=== PATIENT | female | born 1990 | race Caucasian/White ===

== ENCOUNTER 2018-03-13 17:46 | Emergency (ER) | payer MEDICARE, OTHER ==
[~2018-03-13] VITALS: Ht 165.1 cm; Wt 81.8 kg
[~2018-03-13 17:46] MED LIST: DIVA500T52 PO
[2018-03-13 19:07] LABS: AMPHET/METH SCREEN,URINE POSITIVE (NEGATIVE); BARBITURATE SCREEN, URINE NEGATIVE (NEGATIVE); BENZODIAZEPINES SCREEN,URINE POSITIVE (NEGATIVE); CANNABINOID SCREEN,URINE NEGATIVE (NEGATIVE); COCAINE SCREEN,URINE NEGATIVE (NEGATIVE); METHADONE SCREEN, URINE NEGATIVE (NEGATIVE); OPIATE SCREEN,URINE POSITIVE (NEGATIVE); PHENCYCLIDINE SCREEN,URINE NEGATIVE (NEGATIVE)
[2018-03-13 19:14] LABS: BASOPHILS % (AUTO) 0.5 % (0.0-2.0); EOSINOPHILS % (AUTO) 0.8 % (1.0-6.0); HEMATOCRIT 39.5 % (36-46); HEMOGLOBIN 13.5 g/dL (12.0-16.0); LYMPHOCYTES # (AUTO) 2.5 K/uL (1.0-4.8); LYMPHOCYTES % (AUTO) 29.5 % (22.0-44.0); MEAN CORPUSCULAR HEMOGLOBIN 28.1 pg (26.0-34.0); MEAN CORPUSCULAR HGB CONC 34.1 G/dL (31.0-37.0); MEAN CORPUSCULAR VOLUME 83 fL (80-100); MONOCYTES # (AUTO) 0.5 K/uL (0.1-1.0); MONOCYTES % (AUTO) 6.5 % (2.0-9.0); NEUTROPHILS # (AUTO) 5.2 K/uL (1.8-7.7); NEUTROPHILS % (AUTO) 62.7 % (40.0-70.0); PLATELET COUNT (AUTO) 253 K/uL (150-450); RED BLOOD CELL COUNT(AUTO) 4.79 MIL/uL (4.00-5.20); RED CELL DISTRIBUTION WIDTH 14.6 % (11.5-14.5)
[2018-03-13 19:28] LABS: ANION GAP 10 mmol/L (8-16); CALCIUM, TOTAL 9.1 mg/dL (8.8-10.5); CARBON DIOXIDE 26 mmol/L (22-29); CHLORIDE 103 mmol/L (98-107); CREATININE 0.66 mg/dL (0.60-1.30); GLOMERULAR FILTR. RATE CALC > 60 mL/min (>60); GLUCOSE,RANDOM 136 mg/dL (70-110); SODIUM SERUM 139 mmol/L (136-145); UREA NITROGEN, BLOOD 10 mg/dL (7-18)
[2018-03-13 19:34] LABS: ALANINE AMINOTRANSFERASE 22 U/L (12-78); ALBUMIN 3.7 g/dL (3.4-5.0); ALKALINE PHOSPHATASE 90 U/L (46-116); ASPARTATE AMINOTRANSFERASE 14 U/L (15-37); BILIRUBIN,TOTAL 0.4 mg/dL (0.1-1.0)
[2018-03-13 20:47] VITALS: BP 115/72
== END 2018-03-13 20:50 | disposition home or self-care (01) ==
LOC: EMS 17:48
DX: F41.9 Anxiety disorder, unspecified (principal); F29 Unspecified psychosis not due to a substance or known physiological condition; F31.9 Bipolar disorder, unspecified; F17.210 Nicotine dependence, cigarettes, uncomplicated; Z88.0 Allergy status to penicillin; Z88.2 Allergy status to sulfonamides
CPT/HCPCS: 36415; 80053; 80307; 85025; 99284; G0480

== ENCOUNTER 2019-08-30 08:24 | Inpatient (IN) | payer MEDICARE, OTHER ==
[~2019-08-30] VITALS: Ht 165.1 cm; Wt 68.2 kg
[2019-08-30] MEDS ORDERED: ONDA-104 PO (09:09)
[2019-08-30] MEDS ORDERED: CloNIDine HCL 0.1 MG TABLET PO ONE (09:15)
[2019-08-30] MEDS ORDERED: ONDANSETRON HCL 4 MG/2 ML VIAL IVP ONE (09:15)
[2019-08-30 10:15] LABS: BASOPHILS % (AUTO) 0.6 % (0.0-2.0); EOSINOPHILS % (AUTO) 0.1 % (1.0-6.0); HEMATOCRIT 41.3 % (36-46); HEMOGLOBIN 13.7 g/dL (12.0-16.0); LYMPHOCYTES # (AUTO) 2.1 K/uL (1.0-4.8); LYMPHOCYTES % (AUTO) 19.7 % (22.0-44.0); MEAN CORPUSCULAR HEMOGLOBIN 28.5 pg (26.0-34.0); MEAN CORPUSCULAR HGB CONC 33.2 G/dL (31.0-37.0); MEAN CORPUSCULAR VOLUME 86 fL (80-100); MONOCYTES # (AUTO) 0.5 K/uL (0.1-1.0); MONOCYTES % (AUTO) 4.7 % (2.0-9.0); NEUTROPHILS # (AUTO) 7.9 K/uL (1.8-7.7); NEUTROPHILS % (AUTO) 74.9 % (40.0-70.0); PLATELET COUNT (AUTO) 206 K/uL (150-450); RED CELL DISTRIBUTION WIDTH 14.6 % (11.5-14.5)
[2019-08-30] MEDS ORDERED: ACETAMINOPHEN 325 MG TABLET PO PRN ×3 (10:15→23:00)
[2019-08-30] MEDS ORDERED: ONDANSETRON HCL 4 MG/2 ML VIAL IVP PRN ×2 (10:15→23:00)
[2019-08-30] MEDS ORDERED: 0.9% SODIUM CHLORIDE 10 ML SYRINGE IVP PRN (10:15)
[2019-08-30 10:29] LABS: SALICYLATE 0.2 mg/dL (2.8-20.0)
[2019-08-30 10:34] LABS: ALANINE AMINOTRANSFERASE 161 U/L (12-78); ALKALINE PHOSPHATASE 86 U/L (46-116); ANION GAP 12 mmol/L (8-16); ASPARTATE AMINOTRANSFERASE 47 U/L (15-37); BILIRUBIN,TOTAL 0.7 mg/dL (0.1-1.0); CALCIUM, TOTAL 9.1 mg/dL (8.8-10.5); CARBON DIOXIDE 25 mmol/L (22-29); CHLORIDE 104 mmol/L (98-107); CREATINE KINASE, TOTAL ONLY 47 U/L (26-192); CREATININE 0.64 mg/dL (0.60-1.30); GLOMERULAR FILTR. RATE CALC > 60 mL/min (>60); GLUCOSE,RANDOM 113 mg/dL (70-110); HCG,QUANTITATIVE < 1 mIU/mL (0-6); SODIUM SERUM 141 mmol/L (136-145); TOTAL PROTEIN, SERUM 8.3 g/dL (6.4-8.2); UREA NITROGEN, BLOOD 8 mg/dL (7-18)
[2019-08-30 10:35] LABS: POTASSIUM 2.9 mmol/L (3.5-5.1)
[2019-08-30 10:37] LABS: ACETAMINOPHEN < 2 mcg/mL (10-30); B-TYPE NATRIURETIC PEPTIDE 249 pg/mL (0-100)
[2019-08-30] MEDS ORDERED: POTASSIUM CHLORIDE 20 MEQ ER TABLET PO ONE (10:45)
[2019-08-30 10:48] VITALS: BP 113/67
[2019-08-30] MEDS ORDERED: INFLUENZA VIRUS VACCINE QVS 2019-20 (3YR+)/PF 60 MCG/0.5 ML SYRINGE IM ONE (12:00)
[2019-08-30 12:35] VITALS: BP 127/85
[2019-08-30 15:53] VITALS: BP 128/73
[2019-08-30] MEDS: ALPRAZolam 0.25 MG TABLET PO PRN (18:42)
[2019-08-30 19:56] VITALS: BP 132/78
[2019-08-30] MEDS ORDERED: IBUPROFEN 600 MG TABLET PO PRN ×2 (22:00)
[2019-08-30] MEDS ORDERED: HydrOXYzine PAMOATE 50 MG CAPSULE PO PRN (22:00)
[2019-08-30] MEDS ORDERED: MAG HYDROX/AL HYDROX/SIMETH ES 30 ML SUSPENSION UDCUP PO PRN ×2 (22:00)
[2019-08-30] MEDS ORDERED: BACLOFEN 10 MG TABLET PO PRN (22:00)
[2019-08-30] MEDS ORDERED: DICYCLOMINE HCL 10 MG CAPSULE PO PRN (22:00)
[2019-08-30] MEDS ORDERED: LOPERAMIDE HCL 2 MG/15 ML SUSPENSION UDCUP PO PRN (22:00)
[2019-08-30] MEDS ORDERED: TraZODone HCL 50 MG TABLET PO PRN (22:00)
[2019-08-30] MEDS ORDERED: LORazepam 1 MG TABLET PO PRN (22:00)
[2019-08-30] MEDS ORDERED: PROMETHAZINE HCL 25 MG TABLET PO PRN (22:00)
[2019-08-30] MEDS ORDERED: CloNIDine HCL 0.1 MG TABLET PO PRN ×2 (22:00)
[2019-08-30] MEDS: SODIUM CHLORIDE 0.45% 1,000 ML IV SCH (23:00)
[2019-08-30] MEDS: CloNIDine HCL 0.1 MG TABLET PO SCH (23:00)
[2019-08-30] MEDS ORDERED: BISACODYL 10 MG RECTAL RECTAL SUPPOSITORY PR PRN (23:00)
[2019-08-30] MEDS ORDERED: ZOLPIDEM TARTRATE 5 MG TABLET PO PRN (23:00)
[2019-08-30] MEDS ORDERED: ALBUTEROL SULFATE 2.5 MG/0.5 ML NEB SOLUTION NEB PRN (23:00)
[2019-08-30] MEDS ORDERED: MAGNESIUM HYDROXIDE SUSPENSION 30 ML UDCUP PO PRN (23:00)
[2019-08-30] MEDS ORDERED: IPRATROPIUM BROMIDE 0.5 MG/2.5 ML NEB SOLUTION NEB PRN (23:00)
[2019-08-30 23:01] VITALS: BP 113/80
[2019-08-30] MEDS: HEPARIN SODIUM,PORCINE 5,000 UNITS/ML VIAL SQ SCH (23:05)
[2019-08-31] MEDS: CloNIDine HCL 0.1 MG TABLET PO SCH ×4 (06:02→20:27)
[2019-08-31 06:03] VITALS: BP 130/77
[2019-08-31] MEDS: HEPARIN SODIUM,PORCINE 5,000 UNITS/ML VIAL SQ SCH ×3 (08:52→20:32)
[2019-08-31] MEDS: ALPRAZolam 0.25 MG TABLET PO PRN (08:53)
[2019-08-31 09:20] VITALS: BP 106/63
[2019-08-31] MEDS ORDERED: DICYCLOMINE HCL 10 MG CAPSULE PO PRN (13:15)
[2019-08-31] MEDS: OLANZapine 5 MG TABLET PO SCH ×2 (13:49→20:31)
[2019-08-31 15:32] VITALS: BP 104/58
[2019-08-31] MEDS: SODIUM CHLORIDE 0.45% 1,000 ML IV SCH ×2 (16:30→20:33)
[2019-08-31 20:48] VITALS: BP 137/91
[2019-09-01] MEDS: CloNIDine HCL 0.1 MG TABLET PO SCH ×4 (05:53→21:20)
[2019-09-01 05:55] VITALS: BP 136/79
[2019-09-01 08:15] VITALS: BP 122/76
[2019-09-01] MEDS: HEPARIN SODIUM,PORCINE 5,000 UNITS/ML VIAL SQ SCH ×2 (08:43→16:32)
[2019-09-01] MEDS: OLANZapine 5 MG TABLET PO SCH ×2 (08:43→20:04)
[2019-09-01] MEDS: SODIUM CHLORIDE 0.45% 1,000 ML IV SCH (16:33)
[2019-09-01 20:01] VITALS: BP 98/58
[2019-09-02] MEDS: HEPARIN SODIUM,PORCINE 5,000 UNITS/ML VIAL SQ SCH ×4 (00:21→23:50)
[2019-09-02 04:26] VITALS: BP 129/86
[2019-09-02] MEDS: CloNIDine HCL 0.1 MG TABLET PO SCH ×4 (05:26→21:16)
[2019-09-02 07:41] VITALS: BP 127/75
[2019-09-02] MEDS: OLANZapine 5 MG TABLET PO SCH ×2 (08:17→21:15)
[2019-09-02] MEDS: SODIUM CHLORIDE 0.45% 1,000 ML IV SCH ×2 (08:17→16:50)
[2019-09-02] MEDS: HydrOXYzine PAMOATE 25 MG CAPSULE PO SCH ×3 (12:16→21:15)
[2019-09-02 15:22] VITALS: BP 110/69
[2019-09-02 19:00] VITALS: BP 106/54
[2019-09-03 00:12] VITALS: BP 117/75
[2019-09-03] MEDS: CloNIDine HCL 0.1 MG TABLET PO SCH ×4 (05:43→21:42)
[2019-09-03] MEDS: SODIUM CHLORIDE 0.45% 1,000 ML IV SCH (05:47)
[2019-09-03 07:33] LABS: ANION GAP 9 mmol/L (8-16); CALCIUM, TOTAL 9.2 mg/dL (8.8-10.5); CARBON DIOXIDE 25 mmol/L (22-29); CHLORIDE 104 mmol/L (98-107); CREATININE 0.64 mg/dL (0.60-1.30); GLOMERULAR FILTR. RATE CALC > 60 mL/min (>60); GLUCOSE,RANDOM 99 mg/dL (70-110); POTASSIUM 3.8 mmol/L (3.5-5.1); SODIUM SERUM 138 mmol/L (136-145); UREA NITROGEN, BLOOD 7 mg/dL (7-18)
[2019-09-03 07:48] LABS: BASOPHILS % (AUTO) 0.4 % (0.0-2.0); EOSINOPHILS % (AUTO) 0.7 % (1.0-6.0); HEMATOCRIT 40.8 % (36-46); HEMOGLOBIN 13.7 g/dL (12.0-16.0); LYMPHOCYTES # (AUTO) 2.4 K/uL (1.0-4.8); MEAN CORPUSCULAR HEMOGLOBIN 28.8 pg (26.0-34.0); MEAN CORPUSCULAR HGB CONC 33.6 G/dL (31.0-37.0); MEAN CORPUSCULAR VOLUME 86 fL (80-100); MONOCYTES # (AUTO) 0.4 K/uL (0.1-1.0); MONOCYTES % (AUTO) 5.4 % (2.0-9.0); NEUTROPHILS # (AUTO) 5.2 K/uL (1.8-7.7); NEUTROPHILS % (AUTO) 63.5 % (40.0-70.0); RED BLOOD CELL COUNT(AUTO) 4.76 MIL/uL (4.00-5.20); RED CELL DISTRIBUTION WIDTH 14.9 % (11.5-14.5)
[2019-09-03] MEDS: OLANZapine 5 MG TABLET PO SCH ×2 (07:54→20:06)
[2019-09-03] MEDS: HydrOXYzine PAMOATE 25 MG CAPSULE PO SCH ×3 (07:55→20:06)
[2019-09-03] MEDS: HEPARIN SODIUM,PORCINE 5,000 UNITS/ML VIAL SQ SCH ×3 (07:56→23:50)
[2019-09-03 08:06] VITALS: BP 107/65
[2019-09-03 08:41] LABS: PLATELET COUNT (AUTO) 146 K/uL (150-450)
[2019-09-03] MEDS: HydrOXYzine PAMOATE 50 MG CAPSULE PO PRN (10:09)
[2019-09-03] MEDS: HALOPERIDOL 5 MG TABLET PO PRN (12:56)
[2019-09-03 16:10] VITALS: BP 107/68
[2019-09-03 20:07] VITALS: BP 93/48
[2019-09-04] MEDS: HALOPERIDOL 5 MG TABLET PO PRN ×2 (03:54→10:31)
[2019-09-04 04:33] VITALS: BP 111/69
[2019-09-04] MEDS: CloNIDine HCL 0.1 MG TABLET PO SCH ×4 (06:12→21:36)
[2019-09-04] MEDS: HEPARIN SODIUM,PORCINE 5,000 UNITS/ML VIAL SQ SCH ×2 (08:00→16:00)
[2019-09-04 08:26] VITALS: BP 100/61
[2019-09-04] MEDS: HydrOXYzine PAMOATE 50 MG CAPSULE PO PRN ×2 (08:52→13:07)
[2019-09-04] MEDS: OLANZapine 5 MG TABLET PO SCH (08:52)
[2019-09-04] MEDS: HydrOXYzine PAMOATE 25 MG CAPSULE PO SCH (10:27)
[2019-09-04] MEDS: HydrOXYzine PAMOATE 50 MG CAPSULE PO SCH ×2 (16:16→21:33)
[2019-09-04 16:27] VITALS: BP 114/71
[2019-09-04 20:05] VITALS: BP 110/65
[2019-09-04] MEDS: OLANZapine 7.5 MG TABLET PO SCH (21:33)
[2019-09-05 04:55] VITALS: BP 120/78
[2019-09-05] MEDS: CloNIDine HCL 0.1 MG TABLET PO SCH ×4 (05:50→22:00)
[2019-09-05 07:44] VITALS: BP 107/69
[2019-09-05] MEDS: HEPARIN SODIUM,PORCINE 5,000 UNITS/ML VIAL SQ SCH ×3 (08:00→15:17)
[2019-09-05] MEDS: OLANZapine 7.5 MG TABLET PO SCH ×2 (08:10→20:53)
[2019-09-05] MEDS: HydrOXYzine PAMOATE 50 MG CAPSULE PO SCH ×3 (08:11→20:52)
[2019-09-05 15:59] VITALS: BP 110/57
[2019-09-05 20:00] VITALS: BP 98/57
[2019-09-05 22:30] VITALS: BP 92/56
[2019-09-06 04:30] VITALS: BP 115/69
[2019-09-06] MEDS: HydrOXYzine PAMOATE 50 MG CAPSULE PO PRN (05:17)
[2019-09-06] MEDS: CloNIDine HCL 0.1 MG TABLET PO SCH ×4 (05:17→22:32)
[2019-09-06] MEDS: HEPARIN SODIUM,PORCINE 5,000 UNITS/ML VIAL SQ SCH ×3 (08:00→16:00)
[2019-09-06] MEDS: OLANZapine 7.5 MG TABLET PO SCH ×2 (08:10→20:38)
[2019-09-06] MEDS: HydrOXYzine PAMOATE 50 MG CAPSULE PO SCH ×3 (08:10→20:38)
[2019-09-06 08:21] VITALS: BP 99/62
[2019-09-06 16:58] VITALS: BP 92/51
[2019-09-06 19:40] VITALS: BP 99/60
[2019-09-06 22:30] VITALS: BP 106/73
[2019-09-07 03:55] VITALS: BP 99/52
[2019-09-07 06:00] VITALS: BP 113/68
[2019-09-07] MEDS: CloNIDine HCL 0.1 MG TABLET PO SCH ×4 (06:07→22:00)
[2019-09-07 07:51] VITALS: BP 109/57
[2019-09-07] MEDS: OLANZapine 7.5 MG TABLET PO SCH ×2 (07:57→20:28)
[2019-09-07] MEDS: HydrOXYzine PAMOATE 50 MG CAPSULE PO SCH ×3 (07:57→20:28)
[2019-09-07] MEDS: HEPARIN SODIUM,PORCINE 5,000 UNITS/ML VIAL SQ SCH ×4 (07:57→23:30)
[2019-09-07 15:54] VITALS: BP 108/63
[2019-09-07 20:15] VITALS: BP 92/50
[2019-09-08 00:05] VITALS: BP 94/56
[2019-09-08 04:38] VITALS: BP 112/71
[2019-09-08] MEDS: CloNIDine HCL 0.1 MG TABLET PO SCH ×2 (05:19→11:52)
[2019-09-08 07:38] VITALS: BP 93/45
[2019-09-08] MEDS: HEPARIN SODIUM,PORCINE 5,000 UNITS/ML VIAL SQ SCH (08:00)
[2019-09-08] MEDS: OLANZapine 7.5 MG TABLET PO SCH (08:56)
[2019-09-08] MEDS: HydrOXYzine PAMOATE 50 MG CAPSULE PO SCH (08:56)
[2019-09-08 11:52] VITALS: BP 98/58
[2019-09-08] MEDS ORDERED: HYDR50CA9 PO (14:04)
[2019-09-08] MEDS ORDERED: OLAN7.5T2 PO (14:07)
[2019-09-08] MEDS ORDERED: ACET-3207 PO (14:08)
== END 2019-09-08 14:53 | DRG 897 ==
LOC: EMS 08:25 → 6S 10:07
PROVIDERS: ADMIT Hospitalist; ATTEND Hospitalist
DX: F11.23 Opioid dependence with withdrawal (principal); R45.851 Suicidal ideations; F31.5 Bipolar disorder, current episode depressed, severe, with psychotic features; F31.9 Bipolar disorder, unspecified; F17.210 Nicotine dependence, cigarettes, uncomplicated; F41.9 Anxiety disorder, unspecified; Z59.0 Homelessness; Z79.899 Other long term (current) drug therapy; Z88.0 Allergy status to penicillin; Z88.2 Allergy status to sulfonamides
CPT/HCPCS: 83735; 84132; 93005; G0480; G0481; J1644; J2405

== ENCOUNTER 2019-09-15 12:50 | Inpatient (IN) | payer OTHER ==
[~2019-09-15] VITALS: Ht 160 cm; Wt 61.4 kg
[~2019-09-15 12:50] MED LIST changes: +ACET-3207 PO; -DIVA500T52 PO; +HYDR50CA9 PO; +OLAN7.5T2 PO
[2019-09-15] MEDS ORDERED: ACETAMINOPHEN 325 MG TABLET PO PRN ×2 (13:45→16:30)
[2019-09-15 14:03] LABS: BASOPHILS % (AUTO) 0.6 % (0.0-2.0); EOSINOPHILS % (AUTO) 1.5 % (1.0-6.0); HEMATOCRIT 40.1 % (36-46); HEMOGLOBIN 13.4 g/dL (12.0-16.0); LYMPHOCYTES # (AUTO) 2.3 K/uL (1.0-4.8); LYMPHOCYTES % (AUTO) 28.1 % (22.0-44.0); MEAN CORPUSCULAR HEMOGLOBIN 29.1 pg (26.0-34.0); MEAN CORPUSCULAR HGB CONC 33.4 G/dL (31.0-37.0); MEAN CORPUSCULAR VOLUME 87 fL (80-100); MONOCYTES # (AUTO) 0.5 K/uL (0.1-1.0); MONOCYTES % (AUTO) 6.4 % (2.0-9.0); NEUTROPHILS # (AUTO) 5.3 K/uL (1.8-7.7); NEUTROPHILS % (AUTO) 63.4 % (40.0-70.0); PLATELET COUNT (AUTO) 236 K/uL (150-450); RED BLOOD CELL COUNT(AUTO) 4.59 MIL/uL (4.00-5.20); RED CELL DISTRIBUTION WIDTH 15.6 % (11.5-14.5)
[2019-09-15 14:14] LABS: ANION GAP 8 mmol/L (8-16); CALCIUM, TOTAL 9.4 mg/dL (8.8-10.5); CARBON DIOXIDE 28 mmol/L (22-29); CHLORIDE 104 mmol/L (98-107); CREATININE 0.54 mg/dL (0.60-1.30); GLOMERULAR FILTR. RATE CALC > 60 mL/min (>60); GLUCOSE,RANDOM 94 mg/dL (70-110); POTASSIUM 3.9 mmol/L (3.5-5.1); SODIUM SERUM 140 mmol/L (136-145); UREA NITROGEN, BLOOD 12 mg/dL (7-18)
[2019-09-15 14:32] LABS: ALANINE AMINOTRANSFERASE 83 U/L (12-78); ALBUMIN 3.4 g/dL (3.4-5.0); ALKALINE PHOSPHATASE 74 U/L (46-116); ASPARTATE AMINOTRANSFERASE 30 U/L (15-37); BILIRUBIN,TOTAL 0.2 mg/dL (0.1-1.0); HCG,QUANTITATIVE < 1 mIU/mL (0-6); TOTAL PROTEIN, SERUM 7.7 g/dL (6.4-8.2)
[2019-09-15] MEDS ORDERED: INFLUENZA VIRUS VACCINE QVS 2019-20 (3YR+)/PF 60 MCG/0.5 ML SYRINGE IM ONE (14:45)
[2019-09-15] MEDS ORDERED: PETROLATUM,WHITE 28 GM JELLY TP PRN (16:30)
[2019-09-15] MEDS ORDERED: GuaiFENesin/D-METHORPHAN [SUGAR-FREE] 200-20MG/10 ML SYRUP UDCUP PO PRN (16:30)
[2019-09-15] MEDS ORDERED: DOCUSATE SODIUM 100 MG CAPSULE PO PRN (16:30)
[2019-09-15] MEDS ORDERED: LOPERAMIDE HCL 2 MG CAPSULE PO PRN (16:30)
[2019-09-15] MEDS ORDERED: ALBUTEROL SULFATE HFA 90 MCG/PUFF 8 GM INHALER IH PRN (16:30)
[2019-09-15] MEDS ORDERED: IBUPROFEN 400 MG TABLET PO PRN (16:30)
[2019-09-15] MEDS ORDERED: MAGNESIUM HYDROXIDE SUSPENSION 30 ML UDCUP PO PRN (16:30)
[2019-09-15] MEDS ORDERED: CloNIDine HCL 0.1 MG TABLET PO PRN (16:30)
[2019-09-15] MEDS ORDERED: NICOTINE 14 MG/24 HOUR PATCH TD PRN (16:30)
[2019-09-15] MEDS ORDERED: MAG HYDROX/AL HYDROX/SIMETH ES 30 ML SUSPENSION UDCUP PO PRN (16:30)
[2019-09-15] MEDS ORDERED: ONDANSETRON HCL 4 MG TABLET PO PRN (16:30)
[2019-09-15 17:41] VITALS: BP 104/67
[2019-09-15 19:41] VITALS: BP 105/67
[2019-09-16 04:03] VITALS: BP 108/68
[2019-09-16 08:07] VITALS: BP 107/68
[2019-09-16] MEDS: LORazepam 1 MG TABLET PO PRN ×2 (12:51→19:47)
[2019-09-16 15:38] VITALS: BP 109/69
[2019-09-16 19:51] VITALS: BP 108/62
[2019-09-17 04:43] VITALS: BP 107/71
[2019-09-17] MEDS: LORazepam 1 MG TABLET PO PRN ×2 (07:44→12:33)
== END 2019-09-17 18:20 | DRG 885 ==
LOC: EMS 12:52 → 6S 13:39
PROVIDERS: ADMIT Internal Medicine; ATTEND Internal Medicine
DX: F31.5 Bipolar disorder, current episode depressed, severe, with psychotic features (principal); R45.851 Suicidal ideations; F19.10 Other psychoactive substance abuse, uncomplicated; F41.1 Generalized anxiety disorder; B19.20 Unspecified viral hepatitis C without hepatic coma; F11.10 Opioid abuse, uncomplicated; F60.3 Borderline personality disorder; F43.10 Post-traumatic stress disorder, unspecified; F17.210 Nicotine dependence, cigarettes, uncomplicated; Z59.0 Homelessness; Z88.0 Allergy status to penicillin; Z88.2 Allergy status to sulfonamides; Z28.21 Immunization not carried out because of patient refusal
CPT/HCPCS: 87081; G0480

== ENCOUNTER 2021-09-10 21:26 | Emergency (ER) | payer OTHER ==
[~2021-09-10] VITALS: Ht 167.6 cm; Wt 86.4 kg
[2021-09-10] MEDS ORDERED: ACETAMINOPHEN 500 MG TABLET PO ONE (22:30)
[2021-09-10] MEDS ORDERED: KETOROLAC TROMETHAMINE 30 MG/ML VIAL IM ONE (22:30)
[2021-09-11 01:08] VITALS: BP 118/65
== END 2021-09-11 01:09 | disposition home or self-care (01) ==
LOC: EMS 21:28
DX: S20.212A Contusion of left front wall of thorax, initial encounter (principal); F41.9 Anxiety disorder, unspecified; F31.9 Bipolar disorder, unspecified; F11.90 Opioid use, unspecified, uncomplicated; F19.90 Other psychoactive substance use, unspecified, uncomplicated; F17.210 Nicotine dependence, cigarettes, uncomplicated; Z88.0 Allergy status to penicillin; Z88.1 Allergy status to other antibiotic agents; W05.1XXA Fall from non-moving nonmotorized scooter, initial encounter; Y93.55 Activity, bike riding; Y92.89 Other specified places as the place of occurrence of the external cause; Y99.8 Other external cause status
CPT/HCPCS: 71250; 96372; 99284; J1885

== ENCOUNTER 2021-12-07 20:03 | Inpatient (IN) | payer MEDICARE, MEDICAID ==
[~2021-12-07] VITALS: Ht 165.1 cm; Wt 83.9 kg
[2021-12-07] MEDS ORDERED: OXCA600T3 PO (20:39)
[2021-12-07] MEDS ORDERED: BUPR1FIL3 SL (20:39)
[2021-12-07] MEDS ORDERED: GABA-1201 PO (20:39)
[2021-12-07] MEDS ORDERED: TRAZ150T79 PO (20:39)
[2021-12-07] MEDS ORDERED: FLUO20CA36 PO (20:39)
[2021-12-07 21:18] LABS: COVID AG,FIA SOURCE NASOPHARYNGEAL
[2021-12-07 21:19] LABS: BASOPHILS % (AUTO) 0.3 % (0.0-2.0); EOSINOPHILS % (AUTO) 0.9 % (1.0-6.0); HEMATOCRIT 38.5 % (36-46); HEMOGLOBIN 12.9 g/dL (12.0-16.0); LYMPHOCYTES % (AUTO) 34.2 % (22.0-44.0); MEAN CORPUSCULAR HEMOGLOBIN 27.3 pg (26.0-34.0); MEAN CORPUSCULAR HGB CONC 33.5 G/dL (31.0-37.0); MEAN CORPUSCULAR VOLUME 82 fL (80-100); MONOCYTES # (AUTO) 0.5 K/uL (0.1-1.0); MONOCYTES % (AUTO) 5.9 % (2.0-9.0); NEUTROPHILS # (AUTO) 5.2 K/uL (1.8-7.7); NEUTROPHILS % (AUTO) 58.7 % (40.0-70.0); PLATELET COUNT (AUTO) 230 K/uL (150-450); RED BLOOD CELL COUNT(AUTO) 4.72 MIL/uL (4.00-5.20)
[2021-12-07 21:30] LABS: ANION GAP 12 mmol/L (8-16); CALCIUM, TOTAL 8.9 mg/dL (8.8-10.5); CARBON DIOXIDE 26 mmol/L (22-29); CHLORIDE 102 mmol/L (98-107); CREATININE 0.53 mg/dL (0.60-1.30); GLUCOSE,RANDOM 112 mg/dL (70-110); POTASSIUM 3.5 mmol/L (3.5-5.1); SODIUM SERUM 140 mmol/L (136-145); UREA NITROGEN, BLOOD 9 mg/dL (7-18)
[2021-12-07 21:37] LABS: AMPHET/METH SCREEN,URINE NEGATIVE (NEGATIVE); BARBITURATE SCREEN, URINE NEGATIVE (NEGATIVE); BENZODIAZEPINES SCREEN,URINE NEGATIVE (NEGATIVE); CANNABINOID SCREEN,URINE NEGATIVE (NEGATIVE); COCAINE SCREEN,URINE NEGATIVE (NEGATIVE); METHADONE SCREEN, URINE NEGATIVE (NEGATIVE); OPIATE SCREEN,URINE NEGATIVE (NEGATIVE)
[2021-12-07 21:42] LABS: ALANINE AMINOTRANSFERASE 13 U/L (12-78); ALKALINE PHOSPHATASE 96 U/L (46-116); ASPARTATE AMINOTRANSFERASE 8 U/L (15-37); BILIRUBIN,TOTAL 0.2 mg/dL (0.1-1.0); TOTAL PROTEIN, SERUM 8.4 g/dL (6.4-8.2)
[2021-12-07 21:53] LABS: GLOMERULAR FILTR. RATE CALC > 60 mL/min (>60)
[2021-12-07 21:53] LABS: PHENCYCLIDINE SCREEN,URINE NEGATIVE (NEGATIVE)
[2021-12-08] MEDS: ZOLPIDEM TARTRATE 10 MG TABLET PO PRN ×2 (03:21→21:48)
[2021-12-08] MEDS: LORazepam 2 MG TABLET PO PRN ×3 (03:30→17:26)
[2021-12-08 04:53] VITALS: BP 112/71
[2021-12-08] MEDS ORDERED: MAG HYDROX/AL HYDROX/SIMETH ES 30 ML SUSPENSION UDCUP PO PRN (09:45)
[2021-12-08] MEDS ORDERED: LOPERAMIDE HCL 2 MG CAPSULE PO PRN (09:45)
[2021-12-08] MEDS ORDERED: MAGNESIUM HYDROXIDE SUSPENSION 30 ML UDCUP PO PRN (09:45)
[2021-12-08] MEDS ORDERED: ALBUTEROL SULFATE HFA 90 MCG/PUFF 8 GM INHALER IH PRN (09:45)
[2021-12-08] MEDS ORDERED: CloNIDine HCL 0.1 MG TABLET PO PRN (09:45)
[2021-12-08] MEDS ORDERED: DOCUSATE SODIUM 100 MG CAPSULE PO PRN (09:45)
[2021-12-08] MEDS ORDERED: PETROLATUM,WHITE 28 GM JELLY TP PRN (09:45)
[2021-12-08] MEDS ORDERED: GuaiFENesin/D-METHORPHAN [SUGAR-FREE] 200-20MG/10 ML SYRUP UDCUP PO PRN (09:45)
[2021-12-08] MEDS ORDERED: ONDANSETRON HCL 4 MG TABLET PO PRN (09:45)
[2021-12-08] MEDS: HALOPERIDOL 5 MG TABLET PO PRN ×2 (13:03→17:26)
[2021-12-08 16:04] VITALS: BP 103/65
[2021-12-08] MEDS: OXcarbazepine 300 MG TABLET PO SCH (16:06)
[2021-12-08] MEDS: GABAPENTIN 400 MG CAPSULE PO SCH (16:06)
[2021-12-08 23:04] LABS: CHOL/HDL RATIO 4.2 (3.9-5.7); CHOLESTEROL 167 mg/dL (131-200); HDL CHOLESTEROL 40 mg/dL (40-60); LDL CHOL (CALC.) 90 mg/dL (0-130); THYROID STIMULATING HORMONE 1.39 uIU/mL (0.36-3.74); TRIGLYCERIDES 186 mg/dL (15-150)
[2021-12-09 00:07] VITALS: BP 100/62
[2021-12-09] MEDS: GABAPENTIN 400 MG CAPSULE PO SCH ×2 (08:12→16:05)
[2021-12-09] MEDS: LORazepam 2 MG TABLET PO PRN ×2 (08:13→16:32)
[2021-12-09] MEDS: FLUoxetine HCL 20 MG CAPSULE PO SCH (08:13)
[2021-12-09] MEDS: OXcarbazepine 300 MG TABLET PO SCH ×2 (08:13→16:05)
[2021-12-09] MEDS: HALOPERIDOL 5 MG TABLET PO PRN (08:18)
[2021-12-09] MEDS: TraZODone HCL 150 MG TABLET PO SCH (08:25)
[2021-12-09 08:33] VITALS: BP 123/74
[2021-12-09 16:00] VITALS: BP 112/74
[2021-12-09] MEDS: QUEtiapine FUMARATE 200 MG TABLET PO SCH (21:11)
[2021-12-09] MEDS: ZOLPIDEM TARTRATE 10 MG TABLET PO PRN (21:46)
[2021-12-10 06:34] VITALS: BP 118/73
[2021-12-10] MEDS: LORazepam 2 MG TABLET PO PRN ×2 (08:06→16:50)
[2021-12-10] MEDS: FLUoxetine HCL 20 MG CAPSULE PO SCH (08:06)
[2021-12-10] MEDS: TraZODone HCL 150 MG TABLET PO SCH (08:06)
[2021-12-10] MEDS: GABAPENTIN 400 MG CAPSULE PO SCH ×2 (08:06→16:04)
[2021-12-10] MEDS: OXcarbazepine 300 MG TABLET PO SCH ×2 (08:06→16:04)
[2021-12-10 08:16] VITALS: BP 118/84
[2021-12-10] MEDS: HALOPERIDOL 5 MG TABLET PO PRN ×2 (13:38→19:03)
[2021-12-10 16:04] VITALS: BP 121/73
[2021-12-10] MEDS: QUEtiapine FUMARATE 200 MG TABLET PO SCH (20:11)
[2021-12-10] MEDS: ZOLPIDEM TARTRATE 10 MG TABLET PO PRN (20:11)
[2021-12-11 02:58] VITALS: BP 112/76
[2021-12-11] MEDS: LORazepam 2 MG TABLET PO PRN ×3 (03:03→18:53)
[2021-12-11] MEDS: HALOPERIDOL 5 MG TABLET PO PRN ×2 (06:02→12:41)
[2021-12-11] MEDS: FLUoxetine HCL 20 MG CAPSULE PO SCH (08:02)
[2021-12-11] MEDS: GABAPENTIN 400 MG CAPSULE PO SCH ×2 (08:02→16:22)
[2021-12-11 08:03] VITALS: BP 122/74
[2021-12-11] MEDS: TraZODone HCL 150 MG TABLET PO SCH ×2 (08:03→20:24)
[2021-12-11] MEDS: OXcarbazepine 300 MG TABLET PO SCH ×2 (08:03→16:22)
[2021-12-11 16:12] VITALS: BP 103/69
[2021-12-11] MEDS: ACETAMINOPHEN 325 MG TABLET PO PRN (18:08)
[2021-12-11] MEDS: QUEtiapine FUMARATE 200 MG TABLET PO SCH (20:24)
[2021-12-12 00:33] VITALS: BP 112/62
[2021-12-12] MEDS: ZOLPIDEM TARTRATE 10 MG TABLET PO PRN ×2 (02:07→20:39)
[2021-12-12 03:10] VITALS: BP 116/66
[2021-12-12] MEDS: ACETAMINOPHEN 325 MG TABLET PO PRN (03:16)
[2021-12-12] MEDS: GABAPENTIN 400 MG CAPSULE PO SCH ×2 (08:06→16:03)
[2021-12-12] MEDS: OXcarbazepine 300 MG TABLET PO SCH ×2 (08:06→16:03)
[2021-12-12] MEDS: FLUoxetine HCL 20 MG CAPSULE PO SCH (08:06)
[2021-12-12] MEDS: LORazepam 2 MG TABLET PO PRN ×3 (08:06→18:30)
[2021-12-12] MEDS: HALOPERIDOL 5 MG TABLET PO PRN ×2 (08:07→17:11)
[2021-12-12] MEDS: IBUPROFEN 400 MG TABLET PO PRN ×2 (08:07→17:11)
[2021-12-12 08:08] VITALS: BP 110/66
[2021-12-12] MEDS ORDERED: BENZOCAINE/MENTHOL/ZINC CL 20% 11.9 GM GEL TP PRN (15:15)
[2021-12-12 16:23] VITALS: BP 128/82
[2021-12-12 17:10] VITALS: BP 124/79
[2021-12-12] MEDS: QUEtiapine FUMARATE 200 MG TABLET PO SCH (20:39)
[2021-12-12] MEDS: NICOTINE 14 MG/24 HOUR PATCH TD PRN (20:39)
[2021-12-12] MEDS: TraZODone HCL 150 MG TABLET PO SCH (20:39)
[2021-12-13 00:10] VITALS: BP 118/72
[2021-12-13] MEDS: ACETAMINOPHEN 325 MG TABLET PO PRN (03:05)
[2021-12-13] MEDS: LORazepam 2 MG TABLET PO PRN ×2 (05:43→12:20)
[2021-12-13] MEDS: FLUoxetine HCL 20 MG CAPSULE PO SCH (08:30)
[2021-12-13] MEDS: GABAPENTIN 400 MG CAPSULE PO SCH ×2 (08:30→16:01)
[2021-12-13] MEDS: OXcarbazepine 300 MG TABLET PO SCH ×2 (08:30→16:00)
[2021-12-13] MEDS: HALOPERIDOL 5 MG TABLET PO PRN (08:36)
[2021-12-13 08:56] VITALS: BP 114/74
[2021-12-13] MEDS: OxyCODONE HCL/ACETAMINOPHEN 5-325 MG TABLET PO PRN ×2 (08:56→16:01)
[2021-12-13 16:00] VITALS: BP 112/75
[2021-12-13 17:15] VITALS: BP 111/71
[2021-12-13] MEDS: QUEtiapine FUMARATE 200 MG TABLET PO SCH (20:03)
[2021-12-13] MEDS: ZOLPIDEM TARTRATE 10 MG TABLET PO PRN (20:03)
[2021-12-13] MEDS: TraZODone HCL 150 MG TABLET PO SCH (20:03)
[2021-12-14 02:11] VITALS: BP 112/72
[2021-12-14] MEDS: LORazepam 2 MG TABLET PO PRN (03:09)
[2021-12-14] MEDS: ACETAMINOPHEN 325 MG TABLET PO PRN (05:46)
[2021-12-14] MEDS: FLUoxetine HCL 20 MG CAPSULE PO SCH (08:06)
[2021-12-14] MEDS: GABAPENTIN 400 MG CAPSULE PO SCH (08:06)
[2021-12-14] MEDS: OXcarbazepine 300 MG TABLET PO SCH (08:06)
[2021-12-14 08:16] VITALS: BP 118/71
[2021-12-14] MEDS: OxyCODONE HCL/ACETAMINOPHEN 5-325 MG TABLET PO PRN (08:21)
[2021-12-14] MEDS: NICOTINE 14 MG/24 HOUR PATCH TD PRN (09:01)
[2021-12-14] MEDS ORDERED: TRAZ150T79 PO (09:25)
[2021-12-14] MEDS ORDERED: GABA-1201 PO (09:26)
[2021-12-14] MEDS ORDERED: OXCA600T3 PO (09:26)
[2021-12-14] MEDS ORDERED: FLUO20CA36 PO (09:26)
== END 2021-12-14 13:09 | disposition home or self-care (01) | DRG 885 ==
LOC: EMS 20:17 → B3A 12-08 02:12
PROVIDERS: ADMIT Psychiatry & Neurology Psychiatry; ATTEND Psychiatry & Neurology Psychiatry
DX: F25.1 Schizoaffective disorder, depressive type (principal); R45.851 Suicidal ideations; R73.9 Hyperglycemia, unspecified; F17.200 Nicotine dependence, unspecified, uncomplicated; F31.9 Bipolar disorder, unspecified; F43.12 Post-traumatic stress disorder, chronic; F60.3 Borderline personality disorder; G47.00 Insomnia, unspecified; Z20.822 Contact with and (suspected) exposure to COVID-19; F11.10 Opioid abuse, uncomplicated; Z79.899 Other long term (current) drug therapy; Z88.0 Allergy status to penicillin; Z88.2 Allergy status to sulfonamides; Z71.51 Drug abuse counseling and surveillance of drug abuser; Z71.6 Tobacco abuse counseling
CPT/HCPCS: 80053; 80061; 84439; 84443; 84703; 85025; 99285; G0480

== ENCOUNTER 2021-12-18 20:37 | Emergency (ER) | payer OTHER ==
[~2021-12-18] VITALS: Ht 165.1 cm; Wt 59.1 kg
[~2021-12-18 20:37] MED LIST changes: -ACET-3207 PO; +FLUO20CA36 PO; +GABA-1201 PO; -HYDR50CA9 PO; -OLAN7.5T2 PO; +OXCA600T3 PO; +TRAZ150T79 PO
[2021-12-18 21:40] LABS: BASOPHILS % (AUTO) 0.4 % (0.0-2.0); HEMATOCRIT 38.3 % (36-46); HEMOGLOBIN 12.8 g/dL (12.0-16.0); LYMPHOCYTES % (AUTO) 38.2 % (22.0-44.0); MEAN CORPUSCULAR HEMOGLOBIN 27.2 pg (26.0-34.0); MEAN CORPUSCULAR HGB CONC 33.5 G/dL (31.0-37.0); MEAN CORPUSCULAR VOLUME 81 fL (80-100); MONOCYTES # (AUTO) 0.4 K/uL (0.1-1.0); MONOCYTES % (AUTO) 5.7 % (2.0-9.0); NEUTROPHILS # (AUTO) 4.2 K/uL (1.8-7.7); NEUTROPHILS % (AUTO) 54.7 % (40.0-70.0); PLATELET COUNT (AUTO) 245 K/uL (150-450); RED BLOOD CELL COUNT(AUTO) 4.71 MIL/uL (4.00-5.20); RED CELL DISTRIBUTION WIDTH 14.4 % (11.5-14.5)
[2021-12-18 21:48] LABS: ANION GAP 8 mmol/L (8-16); CARBON DIOXIDE 28 mmol/L (22-29); CHLORIDE 103 mmol/L (98-107); CREATININE 0.59 mg/dL (0.60-1.30); GLOMERULAR FILTR. RATE CALC > 60 mL/min (>60); GLUCOSE,RANDOM 114 mg/dL (70-110); POTASSIUM 3.5 mmol/L (3.5-5.1); SODIUM SERUM 139 mmol/L (136-145); UREA NITROGEN, BLOOD 11 mg/dL (7-18)
[2021-12-18 21:54] LABS: ALANINE AMINOTRANSFERASE 17 U/L (12-78); ALBUMIN 3.8 g/dL (3.4-5.0); ALKALINE PHOSPHATASE 108 U/L (46-116); ASPARTATE AMINOTRANSFERASE 12 U/L (15-37); BILIRUBIN,TOTAL 0.2 mg/dL (0.1-1.0); TOTAL PROTEIN, SERUM 7.9 g/dL (6.4-8.2)
[2021-12-18 21:59] LABS: AMPHET/METH SCREEN,URINE NEGATIVE (NEGATIVE); BARBITURATE SCREEN, URINE NEGATIVE (NEGATIVE); BENZODIAZEPINES SCREEN,URINE NEGATIVE (NEGATIVE); CANNABINOID SCREEN,URINE NEGATIVE (NEGATIVE); COCAINE SCREEN,URINE NEGATIVE (NEGATIVE); METHADONE SCREEN, URINE NEGATIVE (NEGATIVE); OPIATE SCREEN,URINE NEGATIVE (NEGATIVE); PHENCYCLIDINE SCREEN,URINE NEGATIVE (NEGATIVE)
[2021-12-18] MEDS ORDERED: LORazepam 1 MG TABLET PO ONE (22:00)
[2021-12-18 22:13] VITALS: BP 142/72
[2021-12-18 22:23] LABS: COVID AG,FIA SOURCE NASAL SWAB
== END 2021-12-18 22:20 | disposition home or self-care (01) ==
LOC: EMS 21:03
DX: F41.9 Anxiety disorder, unspecified (principal); F31.9 Bipolar disorder, unspecified; F25.9 Schizoaffective disorder, unspecified; F60.3 Borderline personality disorder; F17.210 Nicotine dependence, cigarettes, uncomplicated; Z86.59 Personal history of other mental and behavioral disorders; Z98.890 Other specified postprocedural states; Z88.0 Allergy status to penicillin; Z88.2 Allergy status to sulfonamides; Z20.822 Contact with and (suspected) exposure to COVID-19
CPT/HCPCS: 36415; 80053; 80307; 85025; 87426; 99283; C9803; G0480

== ENCOUNTER 2022-09-01 05:56 | Emergency (ER) | payer OTHER ==
[~2022-09-01] VITALS: Ht 167.6 cm; Wt 90.2 kg
[2022-09-01 06:09] VITALS: BP 112/68
[2022-09-01] MEDS ORDERED: SODIUM CHLORIDE 0.9% 1,000 ML IV ONE (06:15)
== END 2022-09-01 06:30 | disposition left against medical advice (07) ==
LOC: EMS 05:57
DX: T42.4X1A Poisoning by benzodiazepines, accidental (unintentional), initial encounter (principal); F41.9 Anxiety disorder, unspecified; F31.9 Bipolar disorder, unspecified; F17.210 Nicotine dependence, cigarettes, uncomplicated; F15.10 Other stimulant abuse, uncomplicated; F60.3 Borderline personality disorder; F20.9 Schizophrenia, unspecified; Z88.0 Allergy status to penicillin; Z88.2 Allergy status to sulfonamides; Y92.89 Other specified places as the place of occurrence of the external cause
CPT/HCPCS: 99283; Z7502

== ENCOUNTER 2022-09-05 01:07 | Emergency (ER) | payer OTHER ==
[~2022-09-05] VITALS: Ht 165.1 cm; Wt 81.0 kg
[2022-09-05] MEDS ORDERED: LORazepam 1 MG TABLET PO ONE (07:45)
[2022-09-05] MEDS ORDERED: HALOPERIDOL 5 MG TABLET PO ONE (07:45)
[2022-09-05] MEDS ORDERED: DiphenhydrAMINE HCL 25 MG CAPSULE PO ONE (07:45)
[2022-09-05 07:53] LABS: BASOPHILS % (AUTO) 0.5 % (0.0-2.0); EOSINOPHILS % (AUTO) 0.7 % (1.0-6.0); HEMATOCRIT 39.7 % (36-46); LYMPHOCYTES # (AUTO) 3.3 K/uL (1.0-4.8); LYMPHOCYTES % (AUTO) 30.1 % (22.0-44.0); MEAN CORPUSCULAR HEMOGLOBIN 30.3 pg (26.0-34.0); MEAN CORPUSCULAR HGB CONC 35.3 G/dL (31.0-37.0); MEAN CORPUSCULAR VOLUME 86 fL (80-100); MONOCYTES # (AUTO) 0.6 K/uL (0.1-1.0); MONOCYTES % (AUTO) 5.4 % (2.0-9.0); NEUTROPHILS # (AUTO) 6.9 K/uL (1.8-7.7); NEUTROPHILS % (AUTO) 63.3 % (40.0-70.0); PLATELET COUNT (AUTO) 280 K/uL (150-450); RED BLOOD CELL COUNT(AUTO) 4.62 MIL/uL (4.00-5.20); RED CELL DISTRIBUTION WIDTH 13.1 % (11.5-14.5)
[2022-09-05 08:10] LABS: ALANINE AMINOTRANSFERASE 161 U/L (12-78); ALBUMIN 4.6 g/dL (3.4-5.0); ALKALINE PHOSPHATASE 108 U/L (46-116); ANION GAP 10 mmol/L (8-16); ASPARTATE AMINOTRANSFERASE 275 U/L (15-37); BILIRUBIN,TOTAL 0.7 mg/dL (0.1-1.0); CALCIUM, TOTAL 9.6 mg/dL (8.8-10.5); CARBON DIOXIDE 31 mmol/L (22-29); CHLORIDE 97 mmol/L (98-107); CREATININE 0.76 mg/dL (0.60-1.30); GLOMERULAR FILTR. RATE CALC > 60 mL/min (>60); GLUCOSE,RANDOM 97 mg/dL (70-110); SODIUM SERUM 138 mmol/L (136-145); TOTAL PROTEIN, SERUM 9.8 g/dL (6.4-8.2); UREA NITROGEN, BLOOD 9 mg/dL (7-18)
[2022-09-05 08:13] LABS: POTASSIUM 2.4 mmol/L (3.5-5.1)
[2022-09-05] MEDS ORDERED: POTASSIUM CHLORIDE 20 MEQ ER TABLET PO ONE (08:30)
[2022-09-05] MEDS ORDERED: KETOROLAC TROMETHAMINE 60 MG/2 ML VIAL IM ONE (13:30)
[2022-09-05] MEDS ORDERED: POTASSIUM CHLORIDE 8 MEQ ER TABLET PO ONE (13:30)
[2022-09-05 14:30] VITALS: BP 117/75
== END 2022-09-05 15:14 | disposition home or self-care (01) ==
LOC: EMS 01:09
DX: L50.9 Urticaria, unspecified (principal); F41.9 Anxiety disorder, unspecified; F31.9 Bipolar disorder, unspecified; F25.9 Schizoaffective disorder, unspecified; F17.210 Nicotine dependence, cigarettes, uncomplicated; Z88.0 Allergy status to penicillin; Z88.2 Allergy status to sulfonamides
CPT/HCPCS: 99284; 80053; 84703; 85025; 96372; G0480; J1885